=== PATIENT | male | born 1950 | race Hispanic/Latino ===

== ENCOUNTER 2024-11-09 18:30 | Inpatient (IN) | payer OTHER ==
[~2024-11-09] VITALS: Ht 172.7 cm; Wt 88.5 kg
--- NOTE | 2024-11-09 19:36 | HP ---
History of Present Illness Reason for Visit: Bradycardia History of Present Illness Mr. Mendez is a 74-year-old male that was seen and examined today on 11/09/2024. Patient is a good historian of personal health. Patient's , Marialuisa is at bedside. 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 Patient presents with the admitting orders for diagnosis of high- grade AV block, right bundle-branch block. Patient reports that since August 2024 he has been having problems with the bradycardia. He discovered this because he was getting medical clearance to have an EGD and a colonoscopy but he could not get cleared because of the bradycardia. Since then patient has been worked up by Cardiology Service in the outpatient setting. Plan is for pacemaker placement by Dr. Connors. Hospitalist service was requested for medical management Past Medical History ADDITIONAL PAST MEDICAL HISTORY: [Hypertension, hyperlipidemia, liver cirrhosis, CAD] SOCIAL HISTORY: [Negative for smoking. Patient drinks alcohol once a month usually six beers that are 12 oz each. Patient denies drug use. Patient lives with his , Marialuisa Mendez. Patient is typically independent of all his ADLs. Patient denies difficulty pain is bills. Patient has good access to health care through his insurance.] SURGICAL HISTORY: [CABG, cataract surgery] Review of Systems General: No Fever, No Chills, No Night Sweats, No Fatigue, No Malaise, No Appetite, No Other HEENT: No Head Aches, No Visual Changes, No Eye Pain, No Ear Pain, No Dysphasia, No Sinus Congestion, No Post Nasal Drip, No Sore Throat, No Other Pulmonary: No Dyspnea, No Cough, No Pleuritic Chest Pain, No Other Cardiovascular: Other (Bradycardia); No: Chest Pain, Palpitations, Orthopnea, Paroxysmal Noc. Dyspnea, Edema, Lt Headedness Gastrointestinal: No: Nausea, Vomiting, Abdominal Pain, Diarrhea, Constipation, Melena, Hematochezia, Other Genitourinary: No Dysuria, No Frequency, No Incontinence, No Hematuria, No Rete ntion, No Other Musculoskeletal: No: other, neck pain, shoulder pain, arm pain, back pain, hand pain, leg pain, foot pain Skin: No Urticaria, No Rash, No Other Neurological: No: Weakness, Numbness, Incoordination, Change in speech, Confusion, Seizures, Other Allergies: Coded Allergies: No Known Drug Allergies (Unverified Allergy, Unknown, 11/09/24) Scheduled Aspirin (Aspirin 81MG Chew Tab), 1 TAB PO DAILY, (Reported) Dicyclomine HCl (Dicyclomine HCl), 1 TAB PO BID, (Reported) Famotidine (Famotidine), 1 TAB PO DAILY, (Reported) Isosorbide Mononitrate (Isosorbide Mononitrate ER), 1 TAB PO DAILY, (Reported) Omeprazole (Omeprazole), 1 CAP PO DAILY, (Reported) Simvastatin (Zocor), 40 MG PO HS, (Reported) Exam Vital Signs Vital Signs Date Time Temp Pulse Resp B/P (MAP) Pulse Ox O2 Delivery O2 Flow Rate FiO2 11/09/24 18:31 98.4 68 18 141/59 96 Room Air General Appearance: Alert, Oriented X3, Cooperative, mild distress HEENT: Atraumatic, EOMI, Mucous membr. moist/pink Respiratory: Clear to auscultation, Normal air movement, NL respiratory effort Cardiovascular: Normal S1, Normal S2, Other (Bradycardia) Abdominal: Normal bowel sounds, Soft, No tenderness, No hepatospenomegaly Extremities: No edema Skin: No significant lesion Neuro: Normal speech, Strength at 5/5 X4 ext, Cranial nerves 3-12 NL Psych/Mental Status: Mental status NL, Mood NL, Thoughts/Content NL Assessment/Plan ASSESSMENT: [ High-grade AV block, POA Right bundle-branch block, POA Hypertension Hyperlipidemia Liver cirrhosis CAD] PLAN: [ Admit patient to pccu as inpatient status. Place patient on telemetry monitoring. Patient is being followed by cardiology service, Dr. Connors Plan is for pacemaker insertion Keep patient NPO Check preprocedure labs, CBC, BMP, magnesium, phosphorus, PTT, UA, type and s creen, EKG, CXR IV fluid maintenance therapy lactated Ringer's at 75 mL/HR Consider resuming home medications once they have been reconciled. At time of admission home medications has been reconciled. For now: Hydralazine 10 mg IV every 4 hours for systolic blood pressure greater than 160 mmHg Atorvastatin 40 mg by mouth once daily. Lactulose 20 g/30 mL by mouth twice daily. Monitor intake and output every shift Weight patient daily Check ammonia level, follow up with the results GI prophylaxis, famotidine DVT prophylaxis, Wade's and SCDs avoid anticoagulation at this time unless recommended by Cardiology Service. ADVANCED CARE PLANNING 1. Which of the following were discussed? Hospice Care - Yes Therapeutic options - yes Advance Directives - Yes - patient states he does not have any advance directives in place at this time, however his , Marialuisa can make decisions for him if he becomes unable Other discussions - patient wishes to remain a full code at this time 2. Discussed with who? Patient 3. Voluntary nature of this service was explained to the patient? Yes 4. Amount of time spent - ___16 minutes____ 5. Reviewed by Physician? (if this service was performed by NPP) Yes This document was generated in part using voice recognition software, occasional wrong word or sound alike substitutions may have occurred due to the inherent limitations of voice recognition software. Read the chart carefully and recognize using context, where the substitutions have occurred. Although every effort was made to edit the content, transcriptionist and typing errors may occur ATTESTATION BY PHYSICIAN I have seen and examined the patient. I reviewed the documentation, medical decision making, and treatment plan as noted by the mid-level provider above. I agree with the findings and plan of care.] [facility] Nov 09, 2024 19:36
[2024-11-09 20:00] VITALS: BP 145/61; PULSE 44; RESP 18; TEMP 98.4; O2SAT 97
[2024-11-09] MEDS ORDERED: LACTULOSE 20 GM/30 ML UDCUP PO PRN (20:00)
[2024-11-09] MEDS ORDERED: DICY20TA3 PO (20:49)
[2024-11-09] MEDS ORDERED: OMEP40CA21 PO (20:49)
[2024-11-09] MEDS ORDERED: ISOS30TA92 PO (20:49)
[2024-11-09] MEDS ORDERED: ASPI-1005 PO (20:49)
[2024-11-09] MEDS ORDERED: FAMO40TA7 PO (20:49)
[2024-11-09] MEDS ORDERED: SIMV40TA59 PO (20:49)
[2024-11-09] MEDS: LACTATED RINGERS 1000ML 1,000 ML IV SCH (21:00)
[2024-11-09 21:11] LABS: IMMATURE GRANULOCYTE ABSOLUTE 0.01 K/uL (0-1); NUCLEATED RED BLOOD CELLS 0.0 % (0.0-0.19); PLATELET COUNT (AUTO) 91 K/uL (130-400); RED BLOOD CELL COUNT(AUTO) 4.20 MIL/uL (4.50-6.20); RED CELL DISTRIBUTION WIDTH 12.5 % (11.0-15.5); WHITE BLOOD COUNT (AUTO) 6.6 K/uL (4.8-10.8)
[2024-11-09 21:18] LABS: CREATININE 1.2 mg/dL (0.5-1.3); GLOMERULAR FILTR. RATE CALC 63.0 mL/min (>90); GLUCOSE,RANDOM 111.0 mg/dL (70-105); SODIUM SERUM 138.0 mmol/L (136-145); UREA NITROGEN, BLOOD 24.0 mg/dL (7-18)
[2024-11-09 21:30] LABS: ASPARTATE AMINOTRANSFERASE 18.0 U/L (10-37); TOTAL PROTEIN, SERUM 6.6 g/dL (6.0-8.3)
[2024-11-10] VITALS (15 sets, daily range): BP systolic 120–159; BP diastolic 58–84; PULSE 40–62; RESP 18–20; TEMP 97.6–98.4; O2SAT 96–100
[2024-11-10] MEDS ORDERED: PoTASSium chl 10% ELIXIR 20MEQ 20 MEQ/15 ML UDCUP PO PRN
[2024-11-10] MEDS: MAGNESIUM 2GM PREMIX 50ML 50 ML IV PRN (00:03)
[2024-11-10] MEDS: PoTASSium chloRIDE 20MEQ ER 20 MEQ ERTAB PO PRN (00:03)
--- NOTE | 2024-11-10 00:59 | EKG ---
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
--- NOTE | 2024-11-10 01:12 | NUR ---
@0047am Received call from telemetry room tech stating patient was having non sustained episodes of bradycardia in 30s. As per tele environmental monitoring technician when patient drops into 30s has episodes of 3rd degree block. Patient mostly stays in heart rate of 40s. Patient was assessed. AA0x4, respirations even and unlabored. No s/s of distress. chest pain free, no lightheadedness, no dizziness. B/P 126/50. asymptomatic. On room air, sating 96% on room air. @0100am Ekg done per protocol. in sinus bradycardia with 2nd degree av block type 1, right bundle branch block.
[2024-11-10 03:50] LABS: IMMATURE GRANULOCYTE ABSOLUTE 0.02 K/uL (0-1); NUCLEATED RED BLOOD CELLS 0.0 % (0.0-0.19); PLATELET COUNT (AUTO) 91 K/uL (130-400); RED BLOOD CELL COUNT(AUTO) 4.09 MIL/uL (4.50-6.20); RED CELL DISTRIBUTION WIDTH 12.6 % (11.0-15.5); WHITE BLOOD COUNT (AUTO) 6.4 K/uL (4.8-10.8)
[2024-11-10 04:05] LABS: INR 1.11 (0.85-1.15)
[2024-11-10 04:09] LABS: CREATININE 1.2 mg/dL (0.5-1.3); GLOMERULAR FILTR. RATE CALC 63.0 mL/min (>90); GLUCOSE,RANDOM 93.0 mg/dL (70-105); PHOSPHORUS 3.5 mg/dL (2.5-4.9); SODIUM SERUM 137.0 mmol/L (136-145); UREA NITROGEN, BLOOD 21.0 mg/dL (7-18)
--- NOTE | 2024-11-10 04:29 | EKG ---
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
[2024-11-10] MEDS: LACTULOSE 20 GM/30 ML UDCUP PO SCH (07:58)
[2024-11-10] MEDS: FAMOTIDINE 20MG VIAL IV SCH (09:05)
--- NOTE | 2024-11-10 09:34 | HMCIMG ---
EXAM: CR Chest, 1 views. CLINICAL HISTORY: Cough. COMPARISON: None provided. FINDINGS: The lungs show no infiltrate or other acute findings. No pleural effusion or pneumothorax. Cardiomegaly is noted. No acute osseous abnormality. IMPRESSION: No pulmonary infiltrates or pleural fusions. Cardiomegaly is noted. /Blevins
--- NOTE | 2024-11-10 11:44 | NUR ---
DCP: HOME Sw met with pt and family. 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 PCP is Amado Garcia and uses [facility] for rx. Denies dc needs and will return home at ar. Addendum: 11/10/24 at 1152 by NIGEL JAIME SS Amended: Links added.
--- NOTE | 2024-11-10 12:32 | HMCSR ---
APPROVED REPORT EXAM: Two-dimensional and M-mode echocardiogram with Doppler and color Doppler. INDICATION ICD: High grade av block, right bundle branch block. 2D Dimensions RVDd4.3 cmLVEF(%)51.8 (>50%)LVED Vol(simp.)100.0 mL IVSd1.2 (0.7-1.1cm)FS(%)26 %LVES Vol(simp.)46.0 mL LVDd4.6 (3.8-5.6cm)LA (2D)4.4 (1.6-4.0cm)LVEF(%, simp.)54 % PWd1.1 (0.7-1.1cm)Ao Root(2D)3.0 (2.0-3.7cm)LA ESV INDEX (BP)33.33 mL/m2 IVSs1.6 cmLVOT diam2.4 (1.8-2.4cm) LVDs3.4 (2.5-4.0cm) PWs1.5 cm Deformation Strain Apical 4-11.3 % Apical 2-21.2 % Apical 3-17.9 % Global Strain-16.8 % M-Mode Dimensions EPSS1.2 cm LA (MM)4.3 (1.6-4.0cm) Ao Root(MM)3.0 (2.0-3.7cm) TDI Medial E' Peak V11.35 cm/sLateral E' Peak V7.75 cm/s Pulmonary Valve PV Vmax0.9 m/sPV VTI0.19 mPV Mean GR1.8 mmHg PV Peak GR3.4 mmHgPI End Thelma. Clif 120.6 cm/s Tricuspid Valve TR Vmax1.7 m/sRAP (EST) 3 [id number] mmHg TR Peak GR11.2 mmHg Left Ventricle The left ventricle is normal size. Paradoxical septal motion consistent with RBBB. GLS-17.0% Mild con centric left ventricular hypertrophy. Low normal LV systolic function. LVEF is 50-55%. The LV diastol ic function was unable to be assessed due to irregular heart rhythm Right Ventricle The right ventricle is normal size. The right ventricular systolic function is normal. Atria The left atrium size is normal. The right atrium size is normal. Aortic Valve Aortic valve is trileaflet and opens well. Trace aortic regurgitation is present. There is no aortic valvular stenosis. Mitral Valve The mitral valve is normal in structure. There is mild mitral valve regurgitation noted. There is no mitral valve stenosis. Tricuspid Valve The tricuspid valve is normal in structure. There is mild tricuspid valve regurgitation noted. Pulmonic Valve The pulmonary valve is normal in structure. There is trace of pulmonic valvular regurgitation. Great Vessels The aortic root is normal in size. The IVC is normal in size and collapses >50% with inspiration. Pericardium There is no pericardial effusion. Other Information Quality : Adequate Conclusion Mild concentric left ventricular hypertrophy. Low normal LV systolic function. LVEF is 50-55%. Paradoxical septal motion consistent with RBBB. GLS-17.0% The LV diastolic function was unable to be assessed due to irregular heart rhythm Trace aortic regurgitation is present. There is mild mitral valve regurgitation noted. There is mild tricuspid valve regurgitation noted. There is trace of pulmonic valvular regurgitation.
[2024-11-10] MEDS ORDERED: SODIUM BICARB 50MEQ 50ML VIAL 50 ML ONE (14:06)
[2024-11-10] MEDS ORDERED: LIDOCAINE HCL 1% MDV 50ML VIAL ONE (14:06)
--- NOTE | 2024-11-10 14:15 | NUR ---
Patient taken to cathlab at this time.
--- NOTE | 2024-11-10 14:25 | PN ---
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 Patient presents with the admitting orders for diagnosis of high-grade AV block, right bundle-branch block. Patient reports that since August 2024 he has been having problems with the bradycardia. He discovered this because he was getting medical clearance to have an EGD and a colonoscopy but he could not get cleared because of the bradycardia. Since then patient has been worked up by Cardiology Service in the outpatient setting. Plan is for pacemaker placement by Dr. Connors. 11/10/24: Patient seen and examined with out family present in room 228. Patient appears stable, breathing comfortably on room air. Patient to be seen by Dr. Connors today who will decide if the patient is going to have the procedure done today or tomorrow. Patient had an echo performed which showed Mild concentric left ventricular hypertrophy. Low normal LV systolic function. LVEF is 50-55%. Paradoxical septal motion consistent with RBBB. GLS-17.0%. The LV diastolic function was unable to be assessed due to irregular heart rhythm. Trace aortic regurgitation is present. There is mild mitral valve regurgitation noted. There is mild tricuspid valve regurgitation noted. There is trace of pulmonic valvular regurgitation. REVIEW OF SYSTEMS CONSTITUTIONAL: Denies fevers, chills, or night sweats. No unintentional weight loss reported. NEUROLOGICAL: Denies headache, motor weakness, sensory deficit, vertigo/spinning sensation, gait abnormalities, or tremors. ENT: No hearing loss, rhinitis, rhinorrhea, hoarseness, or sore throat. CARDIOVASCULAR: Denies any exertional angina, dyspnea on exertion, orthopnea, paroxysmal nocturnal dyspnea, palpitations PULMONARY: Denies any shortness of breath, cough, phlegm/sputum, hemoptysis, pleuritic chest pain. GASTROINTESTINAL: Denies any type of dysphagia to either liquids or solids. Denies nausea, vomiting, abdominal pain, diarrhea, constipation, or changes in stool consistency or caliber. GENITOURINARY: Denies frequency, urgency, nocturia, hematuria or incontinence. ENDOCRINOLOGIC: Denies polyuria, polydipsia, polyphagia or heat/cold intolerances. DERMATOLOGIC: Denies rashes or pruritus. PHYSICAL EXAM GENERAL APPEARANCE: The patient is awake, alert, and oriented, in no acute cardiopulmonary distress. NEUROLOGICAL: Cranial nerves II-XII grossly intact. Motor is 5/5 in bilateral upper and lower extremities proximal to distal. No sensory deficits. HEENT: Face is symmetric. Pupils are equal and reactive. Extraocular movements are intact. NECK: Supple. No JVD. No thyromegaly. No submental, submandibular, pre- /postauricular, occipital or supraclavicular lymphadenopathy. CHEST: Normal chest expansion. LUNGS: Absence of any rales, rhonchi or any wheezing. CARDIOVASCULAR: Bradycardia. S1 and S2 normal. No appreciable rubs, murmurs or gallops. ABDOMEN: Soft, nontender, and nondistended. There is no rebound, voluntary guarding, or rigidity. : Deferred. No [place]. EXTREMITIES: Non-edematous and not cyanotic. No clubbing. Good capillary refill. SKIN: No skin breakdown. Vital Signs (last 8hr) Date Time Temp Pulse Resp B/P (MAP) Pulse Ox O2 Delivery O2 Flow Rate FiO2 11/10/24 11:00 97.9 52 20 152/84 99 Room Air 11/10/24 08:00 96 Room Air* 0 21 11/10/24 07:00 98.4 44 20 138/62 96 Room Air LABS: Laboratory: Test 11/10/24 11:05 11/10/24 03:26 11/09/24 20:30 Range/Units Whole Blood Glucose 90 70-110 MG/DL White Blood Count 6.4 4.8-10.8 K/uL Red Blood Count 4.09 L 4.50-6.20 MIL/uL Hemoglobin 11.9 L 14.0-18.0 g/dL Hematocrit 35.1 L 42-54 % Mean Corpuscular Volume 85.8 79-99 fL Mean Corpuscular Hemoglobin 29.1 27.0-33.0 pg Mean Corpuscular Hemoglobin Concent 33.9 32.0-36.0 g/dL Red Cell Distribution Width 12.6 11.0-15.5 % Platelet Count 91 L 130-400 K/uL Mean Platelet Volume 14.2 H 7.5-10.5 fL Immature Granulocyte % (Auto) 0.3 0-1 % Neutrophils (%) (Auto) 53.3 40.0-77.0 % Lymphocytes (%) (Auto) 33.3 21.0-51.0 % Monocytes (%) (Auto) 10.4 3.0-13.0 % Eosinophils (%) (Auto) 2.4 0.0-8.0 % Basophils (%) (Auto) 0.3 0.0-5.0 % Neutrophils # (Auto) 3.4 1.8-7.7 K/uL Lymphocytes # (Auto) 2.1 1.0-4.8 K/uL Monocytes # (Auto) 0.7 0.1-1.0 K/uL Eosinophils # (Auto) 0.15 0.00-0.70 K/uL Basophils # (Auto) 0.02 0.00-0.20 K/uL Absolute Immature Granulocyte (auto 0.02 0-1 K/uL Nucleated Red Blood Cells 0.0 0.0-0.19 % Prothrombin Time 11.6 9.6-11.6 SEC Prothromb Time International Ratio 1.11 0.85-1.15 Activated Partial Thromboplast Time 27.4 26.3-35.5 SEC Sodium Level 137 136-145 mmol/L Potassium Level 4.3 3.5-5.1 mmol/L Chloride Level 103 101-111 mmol/L Carbon Dioxide Level 26 21-32 mmol/L Blood Urea Nitrogen 21 H 7-18 mg/dL Creatinine 1.2 0.5-1.3 mg/dL Glomerular Filtration Rate Calc 63 >90 mL/min Random Glucose 93 70-105 mg/dL Total Calcium 8.7 8.5-10.1 mg/dL Phosphorus Level 3.5 2.5-4.9 mg/dL Magnesium Level 2.30 1.80-2.40 mg/dL Ammonia 31 11-32 umol/L Free Thyroxine (T4) Direct 1.02 0.76-1.46 ng/dL Free Triiodothyronine (T3) pg/mL 2.81 2.18-3.98 pg/mL Total Bilirubin 0.6 0.2-1.0 mg/dL Aspartate Amino Transf (AST/SGOT) 18 10-37 U/L Alanine Aminotransferase (ALT/SGPT) 14 12-78 U/L Alkaline Phosphatase 92 50-136 U/L B-Type Natriuretic Peptide 285 H 0-100 pg/mL Total Protein 6.6 6.0-8.3 g/dL Albumin 3.5 3.5-5.0 g/dL Thyroid Stimulating Hormone (TSH) 4.01 H 0.36-3.74 uIU/mL Current Medications Medications (Trade) Dose Ordered Sig/Molly Route PRN Reason Start Time Stop Time Status Last Admin Dose Admin Acetaminophen (TYLenol 325MG TAB) 650 mg Q6H PRN PO TEMPERATURE GREATER THAN 101.5 11/09/24 20:00 12/09/24 19:59 Aspirin (Aspirin 81mg Chew Tab) 81 mg DAILY PO 11/11/24 09:00 12/11/24 08:59 Atorvastatin Calcium (LIPItor 40MG) 40 mg HS PO 11/10/24 21:00 12/10/24 20:59 Dicyclomine HCl (Bentyl 20mg Tab) 20 mg BID PO 11/10/24 21:00 12/10/24 20:59 Famotidine (Pepcid 20mg Vial) 20 mg DAILY IV 11/10/24 09:00 12/10/24 08:59 11/10/24 09:05 20 MG Hydralazine HCl (APRESOLine 20MG INJ) 10 mg Q6H PRN IV For:SBP above 160;DBP above 90 11/09/24 20:00 12/09/24 19:59 Isosorbide Mononitrate (Imdur 30mg Sr) 30 mg DAILY PO 11/11/24 09:00 12/11/24 08:59 Lactated Ringer's 1,000 ml @ 75 mls/hr [id number] IV 11/09/24 20:00 12/09/24 19:59 11/10/24 09:13 75 MLS/HR Lactulose (Constulose 20gm/ 30ml Udcup) 20 gm BID PO 11/10/24 09:00 12/10/24 08:59 Lactulose (Constulose 20gm/ 30ml Udcup) 20 gm BID PRN PO CONSTIPATION 11/09/24 20:00 12/09/24 19:59 Magnesium Sulfate 50 ml @ 0 mls/hr PROTOCOL PRN IV h 11/10/24 00:00 12/10/24 00:00 11/10/24 00:03 25 MLS/HR Morphine Sulfate (morPHINE 4MG SYG) 2 mg Q4H PRN IVP SEVERE PAIN (7-10) 11/09/24 20:00 11/16/24 19:59 Ondansetron HCl (zoFRAN 4MG INJ) 4 mg Q6H PRN IV NAUSEA/VOMITING 11/09/24 20:00 12/09/24 19:59 Potassium Chloride 100 ml @ 100 mls/hr AD PRN IV POTASSIUM PROTOCOL 11/10/24 00:00 12/10/24 00:00 Potassium Chloride (K-Dur/Klor-Con 20meq) 20 meq AD PRN PO POTASSIUM PROTOCOL 11/10/24 00:00 12/10/24 00:00 11/10/24 00:03 20 MEQ Potassium Chloride (KCl 10% Elixir 20meq/15ml) 20 meq AD PRN PO POTASSIUM PROTOCOL 11/10/24 00:00 12/10/24 00:00 DIAGNOSTICS / RADIOLOGY: [address] [address] IMAGING REPORT Signed PATIENT: DOUG FOURNIER MR#: [id number] : 1950 SEX: M AGE: 74 LOCATION: [facility] ORDER 23 STATUS: ADM IN REPORT#: [id number] SERVICE 0 REASON: high grade av block, right bundle branch block. ORDERING PHYSICIAN: HIRO HEREDIA MD PROCEDURE: ECHO CMP - ECHO 2-D COMPLETE APPROVED REPORT EXAM: Two-dimensional and M-mode echocardiogram with Doppler and color Doppler. INDICATION ICD: High grade av block, right bundle branch block. 2D Dimensions RVDd 4.3 cm LVEF(%) 51.8 (>50%) LVED Vol(simp.) 100.0 mL IVSd 1.2 (0.7-1.1cm) FS(%) 26 % LVES Vol(simp.) 46.0 mL LVDd 4.6 (3.8-5.6cm) LA (2D) 4.4 (1.6-4.0cm) LVEF(%, simp.) 54 % PWd 1.1 (0.7-1.1cm) Ao Root(2D) 3.0 (2.0-3.7cm) LA ESV INDEX (BP) 33.33 mL/m2 IVSs 1.6 cm LVOT diam 2.4 (1.8-2.4cm) LVDs 3.4 (2.5-4.0cm) PWs 1.5 cm Deformation Strain Apical 4 -11.3 % Apical 2 -21.2 % Apical 3 -17.9 % Global Strain -16.8 % M-Mode Dimensions EPSS 1.2 cm LA (MM) 4.3 (1.6-4.0cm) Ao Root(MM) 3.0 (2.0-3.7cm) TDI Medial E' Peak V 11.35 cm/s Lateral E' Peak V 7.75 cm/s Pulmonary Valve PV Vmax 0.9 m/s PV VTI 0.19 m PV Mean GR 1.8 mmHg PV Peak GR 3.4 mmHg PI End Thelma. Clif 120.6 cm/s Tricuspid Valve TR Vmax 1.7 m/s RAP (EST) 3 mmHg RVSP 14.2 mmHg TR Peak GR 11.2 mmHg Left Ventricle The left ventricle is normal size. Paradoxical septal motion consistent with RBBB. GLS-17.0% Mild concentric left ventricular hypertrophy. Low normal LV s ystolic function. LVEF is 50-55%. The LV diastolic function was unable to be assessed due to irregular heart rhythm Right Ventricle The right ventricle is normal size. The right ventricular systolic function is normal. Atria The left atrium size is normal. The right atrium size is normal. Aortic Valve Aortic valve is trileaflet and opens well. Trace aortic regurgitation is pres ent. There is no aortic valvular stenosis. Mitral Valve The mitral valve is normal in structure. There is mild mitral valve reg urgitation noted. There is no mitral valve stenosis. Tricuspid Valve The tricuspid valve is normal in structure. There is mild tricuspid valve regurgitation noted. Pulmonic Valve The pulmonary valve is normal in structure. There is trace of pulmonic valvular regurgitation. Great Vessels The aortic root is normal in size. The IVC is normal in size and collapses >50% with inspiration. Pericardium There is no pericardial effusion. Other Information Quality : Adequate Conclusion Mild concentric left ventricular hypertrophy. Low normal LV systolic function. LVEF is 50-55%. Paradoxical septal motion consistent with RBBB. GLS-17.0% The LV diastolic function was unable to be assessed due to irregular heart rhythm Trace aortic regurgitation is present. There is mild mitral valve regurgitation noted. There is mild tricuspid valve regurgitation noted. There is trace of pulmonic valvular regurgitation. DICTATED BY: HIRO HEREDIA MD DATE: 11/10/24 0713 ELECTRONICALLY SIGNED BY: HIRO HEREDIA MD DATE: 11/10/24 1235 ASSESSMENT: High-grade AV block, POA Right bundle-branch block, POA Hypertension Hyperlipidemia Liver cirrhosis CAD] PLAN: High-grade AV block, POA. Right bundle-branch block, POA: * Patient admitted for getting pacemaker placed * Patient's echo showed LVEF of 50-55%. Paradoxical septal motion consistent with RBBB. GLS-17.0%. Patient has a regurgitation in all the valves Liver cirrhosis * Patient's liver function tests are all normal * Ammonia level at 31 * Asterixis not present Patient on GI prophylaxis on famotidine 20 mg IV We will request labs in am Further orders to follow depending on above results ATTESTATION BY PHYSICIAN I have seen and examined the patient. I reviewed the documentation, medical decision making, and treatment plan as noted by the resident provider above. I agree with the findings and plan of care. JULIANNE MELISSA MD, ABHINAV MD Nov 10, 2024 14:25
[2024-11-10] MEDS ORDERED: MIDAZOLAM HCL 1 MG/ML 2ML VIAL ONE (14:45)
[2024-11-10] MEDS ORDERED: IODIXANOL 320 MG/ML 100 ML VIAL ONE (14:57)
[2024-11-10] MEDS: DICYCLOMINE HCL 20 MG TAB PO SCH (21:00)
[2024-11-11] VITALS: BP 138/66; PULSE 61; RESP 18; TEMP 98.2
[2024-11-11 04:00] VITALS: BP 132/61; PULSE 61; RESP 18; TEMP 97.8
[2024-11-11 04:01] LABS: NUCLEATED RED BLOOD CELLS 0.0 % (0.0-0.19); PLATELET COUNT (AUTO) 94.0 K/uL (130-400); RED BLOOD CELL COUNT(AUTO) 4.25 MIL/uL (4.50-6.20); RED CELL DISTRIBUTION WIDTH 12.5 % (11.0-15.5); WHITE BLOOD COUNT (AUTO) 8.7 K/uL (4.8-10.8)
[2024-11-11 04:17] LABS: ASPARTATE AMINOTRANSFERASE 19.0 U/L (10-37); CREATININE 1.2 mg/dL (0.5-1.3); GLOMERULAR FILTR. RATE CALC 63.0 mL/min (>90); GLUCOSE,RANDOM 93.0 mg/dL (70-105); SODIUM SERUM 134.0 mmol/L (136-145); TOTAL PROTEIN, SERUM 6.4 g/dL (6.0-8.3); UREA NITROGEN, BLOOD 20.0 mg/dL (7-18)
[2024-11-11 08:00] VITALS: BP 124/65; PULSE 59; RESP 20; TEMP 98.7; O2SAT 100
[2024-11-11] MEDS: ISOSORBIDE MONO 30MG SR TAB PO SCH (09:07)
[2024-11-11] MEDS: ASPIRIN 81MG CHEW TAB PO SCH (09:07)
[2024-11-11 11:56] VITALS: BP 132/67; PULSE 62; RESP 20; TEMP 98.5
[2024-11-11] MEDS ORDERED: ACET-2079 PO (14:29)
[2024-11-11 15:00] VITALS: BP 122/59; PULSE 63; RESP 20; TEMP 98.6
--- NOTE | 2024-11-11 15:04 | DS ---
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 Patient presents with the admitting orders for diagnosis of high-grade AV block, right bundle-branch block. Patient reports that since August 2024 he has been having problems with the bradycardia. He d iscovered this because he was getting medical clearance to have an EGD and a colonoscopy but he could not get cleared because of the bradycardia. Since then patient has been worked up by Cardiology Service in the outpatient setting. Plan is for pacemaker placement by Dr. Connors. Patient had an echo performed which showed mild concentric left ventricular hypertrophy. Low normal LV systolic function. LVEF is 50-55%. Paradoxical septal motion consistent with RBBB. GLS-17.0%. The LV diastolic function was unable to be assessed due to irregular heart rhythm. Trace aortic regurgitation is present. There is mild mitral valve regurgitation noted. There is mild tricuspid valve regurgitation noted. There is trace of pulmonic valvular regurgitation. Later that day patient had a pacemaker placed by Dr. Heredia. Patient tolerated procedure well with no postprocedural complication was transferred to PCCU in stable condition. Patient is seen in his bed today and he is doing well resting comfortably, tender at the insertion site. Patient's heart rate has improved into the 60s today the pacemaker placement. Patient got lactulose which helped him with the bowel movement. Patient has no other complaints. We will follow Dr. Heredia who recommended SLING TO LEFT ARM- PACEMAKER SIDE. DO NOT ELEVATE LEFT ARM ABOVE SHOULDER LEVEL FOR 6 WEEKS KEEP INCISION DRY FOR 5 DAY. DO NOT REMOVE STERISTRIps. He also cleared the patient for discharge so we are discharging the patient at this point. Instructions to follow up with Dr. Heredia in 7-10 days. Copy Lathe Operator(s): Cardiology - Dr. Heredia - placed the pacemaker, gave discharge instructions Procedure(s): [facility] [address] [place] [id number] IMAGING REPORT Signed PATIENT: DOUG FOURNIER MR#: [id number] : 1950 SEX: M AGE: 74 LOCATION: 2DH ORDER 23 STATUS: ADM IN MEDICAL [facility]ENTER REPORT#: [id number] SERVICE 16 REASON: preop ORDERING PHYSICIAN: HIRO HEREDIA MD PROCEDURE: CXR1VW - CHEST 1VW EXAM: CR Chest, 1 views. CLINICAL HISTORY: Cough. COMPARISON: None provided. FINDINGS: The lungs show no infiltrate or other acute findings. No pleural effusion or pneumothorax. Cardiomegaly is noted. No acute osseous abnormality. IMPRESSION: No pulmonary infiltrates or pleural fusions. Cardiomegaly is noted. /[place] DICTATED BY: AMIE OSORIO MD DATE: 11/10/241032 ELECTRONICALLY SIGNED BY: AMIE OOSRIO MD DATE: 11/10/241032 [address] [address] IMAGING REPORT Signed PATIENT: DOUG FOURNIER MR#: [id number] : 1950 SEX: M AGE: 74 LOCATION: [facility] ORDER 23 STATUS: ADM IN REPORT#: [id number] SERVICE 07 REASON: high grade av block, right bundle branch block. ORDERING PHYSICIAN: HIRO HEREDIA MD PROCEDURE: ECHO CMP - ECHO 2-D COMPLETE APPROVED REPORT EXAM: Two-dimensional and M-mode echocardiogram with Doppler and color Doppler. INDICATION ICD: High grade av block, right bundle branch block. 2D Dimensions RVDd 4.3 cm LVEF(%) 51.8 (>50%) LVED Vol(simp.) 100.0 mL IVSd 1.2 (0.7-1.1cm) FS(%) 26 % LVES Vol(simp.) 46.0 mL LVDd 4.6 (3.8-5.6cm) LA (2D) 4.4 (1.6-4.0cm) LVEF(%, simp.) 54 % PWd 1.1 (0.7-1.1cm) Ao Root(2D) 3.0 (2.0-3.7cm) LA ESV INDEX (BP) 33.33 mL/m2 IVSs 1.6 cm LVOT diam 2.4 (1.8-2.4cm) LVDs 3.4 (2.5-4.0cm) PWs 1.5 cm Deformation Strain Apical 4 -11.3 % Apical 2 -21.2 % Apical 3 -17.9 % Global Strain -16.8 % M-Mode Dimensions EPSS 1.2 cm LA (MM) 4.3 (1.6-4.0cm) Ao Root(MM) 3.0 (2.0-3.7cm) TDI Medial E' Peak V 11.35 cm/s Lateral E' Peak V 7.75 cm/s Pulmonary Valve PV Vmax 0.9 m/s PV VTI 0.19 m PV Mean GR 1.8 mmHg PV Peak GR 3.4 mmHg PI End Thelma. Clif 120.6 cm/s Tricuspid Valve TR Vmax 1.7 m/s RAP (EST) 3 mmHg RVSP 14.2 mmHg TR Peak GR 11.2 mmHg Left Ventricle The left ventricle is normal size. Paradoxical septal motion consistent with RBBB. GLS-17.0% Mild concentric left ventricular hypertrophy. Low normal LV systolic function. LVEF is 50-55%. The LV diastolic function was unable to be assessed due to irregular heart rhythm Right Ventricle The right ventricle is normal size. The right ventricular systolic function is normal. Atria The left atrium size is normal. The right atrium size is normal. Aortic Valve Aortic valve is trileaflet and opens well. Trace aortic regurgitation is present. There is no aortic valvular stenosis. Mitral Valve The mitral valve is normal in structure. There is mild mitral valve regurgitation noted. There is no mitral valve stenosis. Tricuspid Valve The tricuspid valve is normal in structure. There is mild tricuspid valve regurgitation noted. Pulmonic Valve The pulmonary valve is normal in structure. There is trace of pulmonic valvular regurgitation. Great Vessels The aortic root is normal in size. The IVC is normal in size and collapses >50% with inspiration. Pericardium There is no pericardial effusion. Other Information Quality : Adequate Conclusion Mild concentric left ventricular hypertrophy. Low normal LV systolic function. LVEF is 50-55%. Paradoxical septal motion consistent with RBBB. GLS-17.0% The LV diastolic function was unable to be assessed due to irregular heart rhythm Trace aortic regurgitation is present. There is mild mitral valve regurgitation noted. There is mild tricuspid valve regurgitation noted. There is trace of pulmonic valvular regurgitation. DICTATED BY: HIRO HEREDIA MD DATE: 11/10/24 0713 ELECTRONICALLY SIGNED BY: HIRO HEERDIA MD DATE: 11/10/24 1232 [facility] [address] [place] [address] IMAGING REPORT Signed PATIENT: DOUG FOURNIER MR#: [id number] : 1950 SEX: M AGE: 74 LOCATION: [facility] ORDER 2300 STATUS: DIS IN REPORT#: [id number] SERVICE 0600 REASON: s/p pacemaker ORDERING PHYSICIAN: HIRO HEREDIA MD PROCEDURE: CXR1VW - CHEST 1VW CHEST 1VW REASON: s/p pacemaker COMPARISON: Prior chest radiograph from 11/09/2024 is available. FINDINGS: Single view of the chest was obtained. Lungs are clear. There is mild cardiomegaly with median sternotomy with cardiac and respiratory variation procedure. There is a left-sided pacemaker with lead in right atrium and right ventricle.. There is no pulmonary vascular congestion. Mediastinum and bony thorax appear unremarkable. IMPRESSION: 1. Status post median sternotomy with cardiac revascularization procedure 2. No evidence of airspace consolidation or pulmonary venous congestion and unchanged from prior study.. DICTATED BY: TYRELL ENCARNACION MD DATE: 11/11/24 1030 ELECTRONICALLY SIGNED BY: TYRELL ENCARNACION MD DATE: 11/11/24 1621 Assessment/Plan: ASSESSMENT: High-grade AV block, POA Right bundle-branch block, POA Hypertension Hyperlipidemia Liver cirrhosis CAD] PLAN: Admission Date: 11/09/24 Discharge Date: 11/11/24 Disposition: Home Condition: Stable Activity: As tolerated Home medications: Continued Discharge medications: Acetaminophen with codeine 300 mg-30 mg Follow-up appointment: Follow up with PCP within 2-3 days of discharge Follow up with within 7-10 days of discharge We reinforced the importance of medication adherence and follow-up appointments. Discharge Instructions: SLING TO LEFT ARM- PACEMAKER SIDE DO NOT ELEVATE LEFT ARM ABOVE SHOULDER LEVEL FOR 6 WEEKS KEEP INCISION DRY FOR 5 DAY DO NOT REMOVE STERISTRIps You may walk and do light activities as tolerated Call 911 or go to ER if you develop fever, severe abdominal pain or bloating, nausea or vomiting that does not improve, redness, swelling, or pus from the incision site, sudden shortness of breath or chest pain Home Medications: Active Scripts Acetaminophen with Codeine (Acetaminophen-Cod #3 Tablet) 300 Mg-30 Mg Tablet, 1 TAB PO TIDP PRN for SEVERE PAIN (7-10) for 5 Days, #15 TAB Prov:JULIANNE MELISSA MD 11/11/24 Reported Medications Dicyclomine HCl (Dicyclomine HCl) 20 Mg Tablet, 1 TAB PO BID for irritable bowel symptoms for 30 Days, #60 TAB 0 Refills 11/09/24 Famotidine (Famotidine) 40 Mg Tablet, 1 TAB PO DAILY for 30 Days, #30 TAB 0 Refills 11/09/24 Aspirin (ASPIRIN 81MG CHEW TAB) 81 Mg Tab.chew, 1 TAB PO DAILY for 30 Days, #30 TAB 0 Refills 11/09/24 Simvastatin (ZOCOR) 40 Mg Tablet, 40 MG PO HS, TAB 11/09/24 Omeprazole (Omeprazole) 40 Mg Capsule.dr, 1 CAP PO DAILY for 30 Days, #30 CAP 0 Refills 11/09/24 Isosorbide Mononitrate (Isosorbide Mononitrate ER) 30 Mg Tab.er.24h, 1 TAB PO DAILY for 30 Days, #30 TAB 0 Refills 11/09/24 New Medications: Acetaminophen with Codeine (Acetaminophen-Cod #3 Tablet) 300 Mg-30 Mg Tablet 1 TAB PO TIDP PRN for SEVERE PAIN (7-10) for 5 Days, #15 TAB Continued Medications: Aspirin (Aspirin 81MG Chew Tab) 81 Mg Tab.chew 1 TAB PO DAILY for 30 Days, #30 TAB 0 Refills Dicyclomine HCl (Dicyclomine HCl) 20 Mg Tablet 1 TAB PO BID for irritable bowel symptoms for 30 Days, #60 TAB 0 Refills Famotidine (Famotidine) 40 Mg Tablet 1 TAB PO DAILY for 30 Days, #30 TAB 0 Refills Isosorbide Mononitrate (Isosorbide Mononitrate ER) 30 Mg Tab.er.24h 1 TAB PO DAILY for 30 Days, #30 TAB 0 Refills Omeprazole (Omeprazole) 40 Mg Capsule.dr 1 CAP PO DAILY for 30 Days, #30 CAP 0 Refills Simvastatin (Zocor) 40 Mg Tablet 40 MG PO HS, TAB Time spent arranging discharge: 31-60 minutes ATTESTATION BY PHYSICIAN I have seen and examined the patient. I reviewed the documentation, medical decision making, and treatment plan as noted by the resident provider above. I agree with the findings and plan of care. JULIANNE MELISSA MD, ABHINAV MD Nov 11, 2024 15:04
--- NOTE | 2024-11-11 15:27 | NUR ---
PATIENT ALERT AND ORIENTED X4 WITH SPOUSE AT BEDSIDE BEING DISCHARGED HOME. S/P PACEMAKER IMPLANTATION EDUCATION GIVEN. PATIENT EDUCATED TO SUPPORT WORKER PRESCRIPTION FROM PHARMACY. MEDICATION EDUCATED INCLUDING SIDE EFFECTS. IV removed without complications. Educated to follow up with dr. Whitney as per scheduled nomi. All questions answered, patient and spouse verbalized complete understanding. PATIENT GATHERED ALL BELONGINGS AND TOOK WITH HIM AT [place].
--- NOTE | 2024-11-11 16:21 | HMCIMG ---
CHEST 1VW REASON: s/p pacemaker COMPARISON: Prior chest radiograph from 11/09/2024 is available. FINDINGS: Single view of the chest was obtained. Lungs are clear. There is mild cardiomegaly with median sternotomy with cardiac and respiratory variation procedure. There is a left-sided pacemaker with lead in right atrium and right ventricle.. There is no pulmonary vascular congestion. Mediastinum and bony thorax appear unremarkable. IMPRESSION: 1. Status post median sternotomy with cardiac revascularization procedure 2. No evidence of airspace consolidation or pulmonary venous congestion and unchanged from prior study..
== END 2024-11-11 15:30 | disposition home or self-care (01) | DRG 244 ==
LOC: EDH 18:30 → 2DH 19:36
PROVIDERS: ADMIT Internal Medicine; ATTEND Internal Medicine
PROC: 0JH606Z Insertion of Pacemaker, Dual Chamber into Chest Subcutaneous Tissue and Fascia, Open Approach (ICD-10-PCS; principal; 2024-11-10)
PROC: 02H63JZ Insertion of Pacemaker Lead into Right Atrium, Percutaneous Approach (ICD-10-PCS; 2024-11-10)
PROC: 02HK3JZ Insertion of Pacemaker Lead into Right Ventricle, Percutaneous Approach (ICD-10-PCS; 2024-11-10)
DX: I44.30 Unspecified atrioventricular block (principal); E78.5 Hyperlipidemia, unspecified; I25.10 Atherosclerotic heart disease of native coronary artery without angina pectoris; I45.10 Unspecified right bundle-branch block; K74.60 Unspecified cirrhosis of liver; I08.1 Rheumatic disorders of both mitral and tricuspid valves; I10 Essential (primary) hypertension; Z95.1 Presence of aortocoronary bypass graft; Z79.82 Long term (current) use of aspirin; Z79.899 Other long term (current) drug therapy; Z95.0 Presence of cardiac pacemaker; Z51.5 Encounter for palliative care
CPT/HCPCS: 33208; 36415; 71045; 80048; 80053; 82140; 82948; 83735; 83880; 84100; 84439; 84443; 84481; 85025; 85027; 85610; 85730; 86850; 86900; 86901; 93005; 93306; 93356; 99156; 99157; 99285; C1785; G0378; J0690; J2250; J2270; J3010; J3475; J3490; Q9967; C1898; J0665; J1308